=== PATIENT | female | born 2005 ===

== ENCOUNTER 2025-03-07 00:06 | Outpatient (CLI) ==
[~2025-03-07] VITALS: Ht 149.9 cm; Wt 86.7 kg
[2025-03-07] MEDS ORDERED: PRENCHW PO (00:34)
[2025-03-07 00:41] VITALS: BP 116/55
== END 2025-03-07 01:50 | disposition home or self-care (01) ==
LOC: M LDO 00:06
PROVIDERS: ATTEND Specialist
DX: O26.893 Other specified pregnancy related conditions, third trimester (principal); W18.2XXA Fall in (into) shower or empty bathtub, initial encounter; Z3A.29 29 weeks gestation of pregnancy; Y92.9 Unspecified place or not applicable; Y93.9 Activity, unspecified; Y99.9 Unspecified external cause status
CPT/HCPCS: 59025; G0463